=== PATIENT | female | born 1975 | race Two or more races ===

== ENCOUNTER 2022-02-20 18:23 | Emergency (ER) | payer OTHER ==
[~2022-02-20] VITALS: Ht 162.6 cm; Wt 54.4 kg
[2022-02-20 18:33] VITALS: BP 102/68
[2022-02-20] MEDS ORDERED: GABAPENTIN 100 MG CAPSULE PO ONE (19:30)
[2022-02-20] MEDS ORDERED: MIRTAZAPINE 15 MG TABLET PO ONE (19:30)
[2022-02-20] MEDS ORDERED: predniSONE 50 MG TABLET PO ONE (19:30)
[2022-02-20] MEDS ORDERED: GABAPENTIN 100 MG CAPSULE ONE (19:35)
[2022-02-20] MEDS ORDERED: predniSONE 20 MG TABLET ONE (19:35)
[2022-02-20] MEDS ORDERED: MIRTAZAPINE 15 MG TABLET ONE (19:36)
--- NOTE | 2022-02-20 19:41 | NUR ---
[facility]
[2022-02-20 20:37] LABS: BASOPHILS % (AUTO) 0.5 % (0.0-2.0); EOSINOPHILS % (AUTO) 4.8 % (0.0-6.0); HEMATOCRIT 42 % (33-45); HEMOGLOBIN 13.8 g/dL (11.5-14.8); LYMPHOCYTES # (AUTO) 2.6 K/uL (0.8-4.8); LYMPHOCYTES % (AUTO) 42.1 % (20.0-44.0); MEAN CORPUSCULAR HGB CONC 33 g/dl (31.0-36.0); MEAN CORPUSCULAR VOLUME 84 fL (82-100); MONOCYTES % (AUTO) 15.8 % (2.0-12.0); NEUTROPHILS # (AUTO) 2.2 K/uL (1.8-8.9); NEUTROPHILS % (AUTO) 36.8 % (43.0-81.0); PLATELET COUNT (AUTO) 244 K/uL (150-450); RED BLOOD CELL COUNT(AUTO) 4.96 MIL/uL (4.0-5.2); WHITE BLOOD COUNT (AUTO) 6.1 K/uL (4.3-11.0)
[2022-02-20 20:48] LABS: CALCIUM, SERUM 9.9 mg/dL (8.5-10.1); CREATININE 0.5 mg/dL (0.6-1.3); POTASSIUM 3.9 mmol/L (3.5-5.1)
[2022-02-20] MEDS ORDERED: PRED20TA PO (20:52)
[2022-02-20] MEDS ORDERED: MIRT-90 PO (20:52)
[2022-02-20] MEDS ORDERED: GABA-532 PO (20:52)
[2022-02-20 20:53] LABS: ALBUMIN 4.1 g/dL (3.4-5.0); BILIRUBIN,TOTAL 0.4 mg/dL (0.2-1.0); TOTAL PROTEIN, SERUM 7.8 g/dL (6.4-8.2)
== END 2022-02-20 22:39 | disposition home or self-care (01) ==
LOC: ER 18:31
DX: L29.9 Pruritus, unspecified (principal); E03.9 Hypothyroidism, unspecified; Z60.2 Problems related to living alone; Z79.52 Long term (current) use of systemic steroids; Z79.899 Other long term (current) drug therapy
CPT/HCPCS: 36415; 80053-TC; 85025-TC